=== PATIENT | female | born 1985 ===

== ENCOUNTER 2025-06-30 07:00 | Day surgery (SDC) | payer OTHER ==
[2025-06-27 09:20] VITALS: BP 110/74
[2025-06-27 09:28] LABS: BASO % 0.7 % (0.1-1.2); EOS # 0.05 (0.04-0.54); EOS % 1.1 % (0.7-7.0); LYMPH # 1.15 (1.18-3.74); LYMPH % 26.1 % (19.3-53.1); MEAN PLATELET VOLUME 10.30 fl (9.4-12.4); MONO # 0.41 (0.24-0.82); MONO % 9.3 % (4.7-12.5); NEUT # 2.75 (1.56-6.13); NEUT % 62.6 % (34.0-71.1); RED CELL DISTRIBUTION WIDTH 12.6 % (11.6-14.4)
[2025-06-27 09:34] LABS: URINE APPEARANCE Clear; URINE BILIRRUBIN Negative (NEGATIVE); URINE BLOOD Trace; URINE COLOR Yellow; URINE GLUCOSE Negative (NEGATIVE); URINE KETONE Negative (NEGATIVE); URINE LEUKOCYTE Negative; URINE NITRATE Negative; URINE PROTEIN Negative (NEGATIVE); URINE UROBILINOGEN 0.2 E.U./dl
[2025-06-27 09:39] LABS: URINE BACTERIA 165.5 uL (0.0-1933); URINE EPITHELIAL CELLS 8.9 uL (0.0-38.8); URINE RBC 2.3 uL (0.0-20.8); URINE WBC 5.3 uL (0.0-23.2)
[2025-06-27 09:47] LABS: URINE CAST 0.73 uL (0.0-1.40)
[2025-06-27 09:51] LABS: INR 1.11
[2025-06-27 10:16] LABS: ALT/SGPT 20.0 U/L (12-78); AST/SGOT 14.0 U/L (15-37); BILIRUBIN TOTAL 0.88 mg/dL (0.3-1.2); BUN CREA RATIO 29.0 (7.0-25.0); CREATININE SERUM 0.7 mg/dL (0.55-1.02); GFR 91.76; GLOBULINA 3.3 G/DL (2.4-3.5); GLUCOSE FASTING 80.0 mg/dL (65-100); OSMOLALITY SERUM 287.0 MOSM/KG (275-295); TSH 2.07 uIU/mL (0.358-3.74)
[~2025-06-30] VITALS: Ht 165.1 cm; Wt 72.6 kg
[~2025-06-30 07:00] MED LIST: PLAQUENIL; PROZAC20 MG PO; SIMVASTATIN80 MG
[2025-06-30] MEDS ORDERED: CEFOXITIN SODIUM 2,000 MG VIAL IV ONE (07:47)
[2025-06-30] MEDS ORDERED: POVIDONE-IODINE 118 ML BOTT TOP ONE (09:31)
[2025-06-30] MEDS ORDERED: PROMETHAZINE HCL 50 MG/ML AMPUL IM ONE (11:30)
[2025-06-30] MEDS ORDERED: NAPR500T14 PO (11:32)
[2025-06-30] MEDS ORDERED: MONDOXYNE NL100 MG PO (11:32)
== END 2025-06-30 15:40 | disposition home or self-care (01) ==
LOC: CIR.AMB 07:00
PROVIDERS: ATTEND Obstetrics & Gynecology
DX: D25.0 Submucous leiomyoma of uterus (principal); N84.0 Polyp of corpus uteri; N92.0 Excessive and frequent menstruation with regular cycle